=== PATIENT | male | born 1960 | race Caucasian/White ===

== ENCOUNTER 2018-10-22 14:22 | Emergency (ER) | payer OTHER, BC ==
--- NOTE | 2018-10-22 14:46 | ED Physician Documentation ---
PD HPI BACK INJURY - Stated complaint Stated Complaint: FALL/BK PX - History obtained from History obtained from: Patient, Friend - History of Present Illness Location: Lower Type of injury: Fall Where injury occurred: Work Timing - onset: Today Timing - duration: Minutes Timing - details: Abrupt onset, Still present Quality: Pain, Spasm, Sharp Improved by: Rest, Immobilization Worsened by: Moving, Palpating Associated symptoms: No: Fever, Weakness, Numbness, Incontinent of urine, Unable to urinate, Hematuria, Incontinent of stool Contributing factors: No: Anticoagulated Similar symptoms before: Has not had sx before Recently seen: Not recently seen - Additional information Additional information: 58-year-old male was 2 steps up on a ladder when he fell backwards and he had a hammer in his stool bag and he landed on top of the hammer against his lower back. He has a lot of pain in the lower back. He is able to stand and walk but has pain associated with this. Review of Systems Constitutional: denies: Fever Eyes: denies: Decreased vision Ears: denies: Ear pain Nose: denies: Congestion Throat: denies: Sore throat Cardiac: denies: Chest pain / pressure, Palpitations Respiratory: denies: Dyspnea, Cough GI: denies: Abdominal Pain, Nausea, Vomiting : denies: Dysuria, Frequency Skin: denies: Rash, Abrasion (s) Musculoskeletal: reports: Back pain, Extremity pain Neurologic: denies: Generalized weakness, Focal weakness, Numbness PD PAST MEDICAL HISTORY - Present Medications Home Medications: Ambulatory Orders Medication Instructions Recorded Confirmed Hydrocodone/Acetaminophen 1 - 2 each PO Q6H PRN #14 tablet 10/22/18 [Hydrocodon-Acetaminophen 5-325] - Allergies Allergies/Adverse Reactions: Allergies Allergy/AdvReac Type Severity Reaction Status Date / Time No Known Drug Allergies Allergy Verified 10/22/18 14:32 PD ED PE NORMAL - Vitals Vital signs reviewed: Yes (hypertensive ) - General General: Alert and oriented X 3, No acute distress, Well developed/nourished - HEENT HEENT: Atraumatic, PERRL, EOMI - Respiratory Respiratory: No respiratory distress - Back Back: No CVA TTP, Other (There is midline tenderness to the lower lumbar spine and to the right. 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 Degenerative changes. See above.), EMP read indepedently, See rad report PD MEDICAL DECISION MAKING - ED course Complexity details: reviewed results, re-evaluated patient, considered differential, d/w patient, d/w family ED course: 58-year-old male was fallen on his back against a hammer has a contusion to his lower lumbar spine with a lot of pain. He has no evidence of fracture on plain film. Departure - Departure Disposition: 01 Home, Self Care Clinical Impression: Lumbar contusion Qualifiers: Encounter type: initial encounter Qualified Code(s): S30.0XXA - Contusion of lower back and pelvis, initial encounter Condition: Stable Instructions: ED Contusion Back Follow-Up: [facility] [Provider Group] Prescriptions: Hydrocodone/Acetaminophen [Hydrocodon-Acetaminophen 5-325] 1 - 2 each PO Q6H PRN #14 tablet PRN Reason: pain Forms: Activity restrictions
[2018-10-22] MEDS ORDERED: HYDROcod/ACETAM 5/325 MG TABLET PO STA (14:47)
--- NOTE | 2018-10-22 15:53 | XRAY Report ---
Reason: lower lumbar contusion with fall Procedure Date: 10/22/2018 Accession Number: [id number] / [id number] Procedure: XR - Lumbar Spine 2 View CPT Code: FULL RESULT: EXAM: LUMBOSACRAL SPINE RADIOGRAPHY EXAM DATE: 10/22/2018 03:24 PM. CLINICAL HISTORY: Lower lumbar contusion with fall. COMPARISONS: None. TECHNIQUE: 2 views. FINDINGS: Moderate diffuse degenerative disk disease in the lumbar spine at L2-S1 with disk height loss, sclerosis and osteophytes. Moderate facet arthropathy at L3-S1. Mild retrolisthesis of L2-L3, could be degenerative. No evidence for acute fracture. IMPRESSION: No evidence for acute fracture. Degenerative changes. See above. RADIA
[2018-10-22 16:06] VITALS: BP 142/83
== END 2018-10-22 16:11 | disposition home or self-care (01) ==
LOC: ED 14:22
DX: S30.0XXA Contusion of lower back and pelvis, initial encounter (principal); W11.XXXA Fall on and from ladder, initial encounter; Y99.0 Civilian activity done for income or pay
CPT/HCPCS: 1040M; 72100; 99283; A9270

== ENCOUNTER 2022-10-29 18:24 | Outpatient (CLI) | payer OTHER ==
--- NOTE | 2022-10-30 19:11 | XRAY Report ---
PROCEDURE: Forearm LT INDICATIONS: OTHER INJURY OF SPECIFIED MUSCLES FASCIA AND TENDO TECHNIQUE: 2 views of the forearm were acquired. COMPARISON: None FINDINGS: Bones: No fractures or dislocations. No suspicious bony lesions. Soft tissues: No suspicious soft tissue calcifications or masses. IMPRESSION: No visualized acute fracture or dislocation. However, occult injury cannot be excluded. Recommend maria ines rt interval imaging follow-up in 7-10 days as clinically indicated for additional evaluation. Reviewed by: Sparkle Ennis MD on 10/30/2022 7:10 PM [facility] Approved by: Sparkle Ennis MD on 10/30/2022 7:10 PM [facility] Station ID: [id number]
== END 2022-10-29 18:25 | disposition home or self-care (01) ==
LOC: DI 18:24
PROVIDERS: ATTEND Registered Nurse
DX: S66.892A Other injury of other specified muscles, fascia and tendons at wrist and hand level, left hand, initial encounter (principal); S51.832A Puncture wound without foreign body of left forearm, initial encounter; L03.90 Cellulitis, unspecified